=== PATIENT | female | born 1960 | race African-American/Black ===

== ENCOUNTER 2016-05-30 21:11 | Emergency (ER) | payer OTHER ==
[~2016-05-30] VITALS: Ht 162.6 cm; Wt 79.4 kg
[2016-05-30] MEDS ORDERED: Methocarbamol 750mg tab ORAL ONE (21:45)
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
[2016-05-30] MEDS ORDERED: ROBAXIN-750750 MG PO (21:47)
[2016-05-30 21:58] VITALS: BP 112/80
[2016-05-30 21:59] VITALS: BP 106/73
== END 2016-05-30 22:01 | disposition home or self-care (01) ==
LOC: EDBD 21:11 → EMR 21:53 → EDBD 21:53 → EMR 22:01
DX: M79.1 Myalgia (principal)
CPT/HCPCS: 99283

== ENCOUNTER 2016-09-14 09:44 | Emergency (ER) | payer OTHER ==
[~2016-09-14] VITALS: Ht 170.2 cm; Wt 90.7 kg
[~2016-09-14 09:44] MED LIST: ROBAXIN-750750 MG PO
[2016-09-14 09:52] VITALS: BP 131/89
[2016-09-14] MEDS ORDERED: ROBAXIN500 MG PO (10:25)
[2016-09-14 10:37] VITALS: BP 131/89
--- NOTE | 2016-09-14 13:10 | Emergency Room Report ---
History of Present Illness General Chief Complaint: Pain Source: Patient Present Illness HPI 56-year-old female presents to ED for evaluation. States the last month she's been having cramping sensation in her legs bilaterally, left worse and right. 5 /10 in intensity. Nonradiating. No aggravating or relieving factors. Patient states she is taking Robaxin in the past for cramping. Is here for refill of her medication. Denies injuries to the leg. Denies any other associated symptoms Allergies: Coded Allergies: No Known Allergies (Unverified , 05/30/16) Patient History Past Medical History: asthma Past Surgical History: none Pertinent Family History: none Social History: Denies: alcohol use, drug use, smoking Last Menstrual Period: partial hystrectomy Now: No Immunizations: UTD Reviewed Nursing Documentation: PMH: Agreed, PSxH: Agreed Nursing Documentation-PMH Past Medical History: No History, Except For Hx Asthma: Yes Review of Systems All Other Systems: negative except mentioned in HPI Physical Exam Vital Signs Date Time Temp Pulse Resp B/P Pulse Ox O2 Delivery O2 Flow Rate FiO2 09/14/16 09:52 97.7 16 131/89 99 Room Air 09/14/16 09:52 73 Sp02 EP Interpretation: reviewed, normal General Appearance: no apparent distress, alert, GCS 15, non-toxic Head: normocephalic, atraumatic Eyes: bilateral eye PERRL, bilateral eye normal inspection ENT: hearing grossly normal, normal pharynx, no angioedema, normal voice Neck: full range of motion, supple/symm/no masses Respiratory: chest non-tender, lungs clear, normal breath sounds, speaking full sentences Cardiovascular #1: regular rate, rhythm, no edema Cardiovascular #2: 2+ carotid (R), 2+ carotid (L), 2+ radial (R), 2+ radial (L) , 2+ dorsalis pedis (R), 2+ dorsalis pedis (L) Gastrointestinal: normal bowel sounds, non tender, soft, non-distended, no guarding, no rebound Rectal: deferred Genitourinary: normal inspection, no CVA tenderness Musculoskeletal: back normal, gait/station normal, normal range of motion, non- tender Neurologic: alert, oriented x3, responsive, motor strength/tone normal, sensory intact, speech normal Psychiatric: judgement/insight normal, memory normal, mood/affect normal, no suicidal/homicidal ideation Reflexes: 3+ bicep (R), 3+ bicep (L), 3+ tricep (R), 3+ tricep (L), 3+ knee (R) , 3+ knee (L) Skin: normal color, no rash, warm/dry, well hydrated Lymphatic: no adenopathy Medical Decision Making Diagnostic Impression: Primary Impression: Muscle cramps ER Course 56-year-old female presents to ED refill of her medication. takes robaxin for leg cramps hospital course: After initial history physical exam reveals a middle-aged female in no acute distress there is some palpable muscle tenderness in both legs. No bony tenderness. No swelling. Patient states pain is typical of her muscle cramps. I will provide her with prescription of Robaxin Diagnosis- muscle cramps Stable and discharged to home with prescription for Robaxin. Followup with PMD. Return to ED if symptoms recur or worsen Last Vital Signs Date Time Temp Pulse Resp B/P Pulse Ox O2 Delivery O2 Flow Rate FiO2 09/14/16 10:37 97.7 16 131/89 99 Room Air 09/14/16 09:52 73 Status: improved Disposition: HOME, SELF-CARE Condition: Stable Scripts Methocarbamol* (ROBAXIN*) 500 Mg Tablet 500 MG PO TID, #21 TAB 0 Refills Prov: SHAHRZAD MCCLELLAND M.D. 09/14/16 Referrals: [facility] (PCP) Patient Instructions: Muscle Cramps and Spasms, [id number] SHAHRZAD MCCLELLAND M.D. September 14, 2016 13:10
== END 2016-09-14 10:38 | disposition home or self-care (01) ==
LOC: EMR 10:32
DX: R25.2 Cramp and spasm (principal); J45.909 Unspecified asthma, uncomplicated; Z90.710 Acquired absence of both cervix and uterus
CPT/HCPCS: 99283

== ENCOUNTER 2016-10-19 12:20 | Emergency (ER) | payer OTHER ==
[~2016-10-19] VITALS: Ht 170.2 cm; Wt 90.7 kg
[~2016-10-19 12:20] MED LIST changes: +ROBAXIN500 MG PO
[2016-10-19] MEDS ORDERED: Ketorolac 60mg Inj IM ONE (12:45)
--- NOTE | 2016-10-19 12:55 | Emergency Room Report ---
History of Present Illness General Chief Complaint: Pain Source: Patient Present Illness HPI 56YOF [employer] patient with pain to right knee after "lots of walking" yesterday when she went to [place]. Denies direct trauma to right knee, leg, falls. Taking Robaxin for pain. Denies swelling, fever/chills, redness. Patient homeless. Has been here before similar. Allergies: Coded Allergies: No Known Allergies (Unverified , 05/30/16) Patient History Past Medical History: none Past Surgical History: none Pertinent Family History: none Social History: Denies: alcohol use, drug use, smoking Now: No Immunizations: UTD Reviewed Nursing Documentation: PMH: Agreed, PSxH: Agreed Nursing Documentation-PMH Hx Asthma: Yes Review of Systems All Other Systems: negative except mentioned in HPI Physical Exam Vital Signs Date Time Temp Pulse Resp B/P Pulse Ox O2 Delivery O2 Flow Rate FiO2 10/19/16 12:24 97.3 78 15 144/95 98 Room Air Sp02 EP Interpretation: reviewed, normal General Appearance: normal inspection, well appearing, no apparent distress, alert, GCS 15, non-toxic Head: normocephalic, atraumatic Eyes: bilateral eye EOMI, bilateral eye PERRL ENT: normal ENT inspection, hearing grossly normal, normal voice Neck: normal inspection, full range of motion, supple, no bony tend Respiratory: normal inspection, lungs clear, normal breath sounds, no respiratory distress, no retraction, no wheezing Cardiovascular #1: regular rate, rhythm, no edema Gastrointestinal: normal inspection, normal bowel sounds, non tender, soft, no guarding, no hernia Genitourinary: no CVA tenderness Musculoskeletal: normal inspection, back normal, normal range of motion, Arlin' s Sign negative, other - right knee: No trauma. No obvious deformity. Mild suprapatellar swelling. Mild ttp. Able to flex, extend without pain. Neurologic: normal inspection, alert, oriented x3, responsive, supervisor sterile processing III-XII nml as tested, motor strength/tone normal, speech normal Psychiatric: normal inspection, judgement/insight normal, mood/affect normal Skin: normal inspection, normal color, no rash Medical Decision Making Diagnostic Impression: Primary Impression: Right knee pain Qualified Codes: M25.561 - Pain in right knee ER Course Toradol given Xray: no acute trauma Some swelling VANESSA bandage given Has Robaxin for pain Advised ICE, RICE PMD followup as needed Other X-Ray Diagnostic Results # of Views/Limited Vs Complete: 3 View EP Interpretation: Yes Interpretation: no fractures, no dislocation, no soft tissue swelling Indication: Pain Impression: No acute disease Interpreting ER Provider: Caitlin Last Vital Signs Date Time Temp Pulse Resp B/P Pulse Ox O2 Delivery O2 Flow Rate FiO2 10/19/16 12:24 97.3 78 15 144/95 98 Room Air Status: improved Disposition: HOME, SELF-CARE MARY ALICE SAMUELS M.D. Oct 19, 2016 12:55
[2016-10-19 13:18] VITALS: BP 144/95
[2016-10-19 14:01] VITALS: BP 144/95
--- NOTE | 2016-10-20 11:21 | Diagnostic Imaging Report ---
Indications: Right knee pain Technique: 3 views of the right knee Findings: Comparison: None No fracture, dislocation, lytic destruction, periosteal reaction, joint space widening or effusion, surrounding soft tissue abnormality, or other acute changes demonstrated. No deformity, alignment abnormality, arthritic change, soft tissue calcification, or other chronic changes demonstrated. IMPRESSION: Negative right knee series.
== END 2016-10-19 14:03 | disposition home or self-care (01) ==
LOC: EMR 12:51
DX: M25.561 Pain in right knee (principal); Z59.0 Homelessness
CPT/HCPCS: 29530; 96372; 99283

== ENCOUNTER 2016-10-23 09:05 | Emergency (ER) | payer OTHER ==
[~2016-10-23] VITALS: Ht 170.2 cm; Wt 90.7 kg
[2016-10-23 09:22] VITALS: BP 108/73
[2016-10-23] MEDS ORDERED: ROBAXIN-750750 MG PO (09:38)
[2016-10-23 10:02] VITALS: BP 124/71
--- NOTE | 2016-10-23 10:33 | Emergency Room Report ---
History of Present Illness General Chief Complaint: Pain Source: Patient Present Illness HPI 56YOF [employer] patient walked in with request for cane. Lost her cane. Also wants refill of Robaxin Denies pain, acute trauma Was here to see me 1 week prior. Went to another ER since AND also was seen here by another ER MD Allergies: Coded Allergies: No Known Allergies (Unverified , 05/30/16) Patient History Past Medical History: see triage record, old chart reviewed Past Surgical History: none Pertinent Family History: none Social History: Denies: alcohol use, drug use, smoking Now: No Immunizations: UTD Reviewed Nursing Documentation: PMH: Agreed, PSxH: Agreed Nursing Documentation-PMH Past Medical History: No History, Except For Hx Asthma: Yes Review of Systems All Other Systems: negative except mentioned in HPI Physical Exam Vital Signs Date Time Temp Pulse Resp B/P Pulse Ox O2 Delivery O2 Flow Rate FiO2 10/23/16 09:22 97.3 15 108/73 98 Room Air 10/23/16 09:22 78 Sp02 EP Interpretation: reviewed, normal General Appearance: normal inspection, well appearing, no apparent distress, alert, GCS 15, non-toxic, obese Head: normocephalic, atraumatic Eyes: bilateral eye EOMI, bilateral eye PERRL ENT: normal ENT inspection, hearing grossly normal, normal voice Neck: normal inspection, full range of motion, supple, no bony tend Respiratory: normal inspection, lungs clear, normal breath sounds, no respiratory distress, no retraction, no wheezing Cardiovascular #1: regular rate, rhythm, no edema Gastrointestinal: normal inspection, normal bowel sounds, non tender, soft, no guarding, no hernia Genitourinary: no CVA tenderness Musculoskeletal: normal inspection, back normal, normal range of motion, pelvis stable, Arlin's Sign negative, other - No obvious signs of infection, cellulitis to bilateral knees Neurologic: normal inspection, alert, oriented x3, responsive, chief embalmer III-XII nml as tested, motor strength/tone normal, speech normal Psychiatric: normal inspection, judgement/insight normal, mood/affect normal Skin: normal inspection, normal color, no rash Medical Decision Making Diagnostic Impression: Primary Impression: Use of cane as ambulatory aid Additional Impressions: Encounter for cane training Medication refill ER Course Cane given Rx Robaxin refilled DC home Last Vital Signs Date Time Temp Pulse Resp B/P Pulse Ox O2 Delivery O2 Flow Rate FiO2 10/23/16 10:02 63 18 124/71 100 Room Air 10/23/16 09:22 97.3 Status: improved Disposition: HOME, SELF-CARE Condition: Improved Scripts Methocarbamol* (ROBAXIN-750*) 750 Mg Tablet 750 MG PO TID for 7 Days, #30 TAB 0 Refills Prov: MARY ALICE SAMUELS M.D. 10/23/16 Referrals: [facility] (PCP) Patient Instructions: Musculoskeletal Pain MARY ALICE SAMUELS M.D. Oct 23, 2016 10:32
== END 2016-10-23 10:07 | disposition home or self-care (01) ==
LOC: EMR 09:25
DX: Z76.0 Encounter for issue of repeat prescription (principal); Z74.09 Other reduced mobility
CPT/HCPCS: 99283

== ENCOUNTER 2017-01-21 09:41 | Emergency (ER) | payer OTHER ==
[~2017-01-21] VITALS: Ht 165.1 cm; Wt 90.7 kg
--- NOTE | 2017-01-21 10:05 | Emergency Room Report ---
History of Present Illness General Chief Complaint: Pain Source: Patient Present Illness HPI Patient has a plantar wart on her left foot. She's run out of medication. She has pain when she ambulates. She has been taking ibuprofen that's been helping with the pain. She denies any fevers, chills or redness in the area. She's been using Compound W. She's asking for a cane because she has pain when she ambulates. Also requests more compound W. The patient states her tetanus is up-to-date. H/O asthma, resps stable. Allergies: Coded Allergies: No Known Allergies (Unverified , 05/30/16) Patient History Past Medical History: see triage record Social History: Denies: smoking Social History Narrative lives in apartment Reviewed Nursing Documentation: PMH: Agreed, PSxH: Agreed Nursing Documentation-PMH Hx Asthma: Yes Review of Systems Constitutional: Denies: fever Respiratory: Denies: shortness of breath Cardiovascular: Denies: chest pain Gastrointestinal: Denies: vomiting Musculoskeletal: Reports: see HPI Skin: Reports: see HPI Neurological: Denies: numbness, tingling Physical Exam Vital Signs Date Time Temp Pulse Resp B/P (MAP) Pulse Ox O2 Delivery O2 Flow Rate FiO2 01/21/17 09:44 97.5 66 20 129/85 99 Skin: other - plantar wart L foot Medical Decision Making Diagnostic Impression: Primary Impression: Plantar wart of left foot ER Course Patient presents with a plantar wart on her left foot. Differential diagnoses clinical and the patient is afebrile. No evidence of cellulitis. Local tenderness with weight bearing. The patient also requesting a cane. Rxs. The patient is stable for outpatient observation and treatment. Last Vital Signs Date Time Temp Pulse Resp B/P (MAP) Pulse Ox O2 Delivery O2 Flow Rate FiO2 01/21/17 10:14 97.5 66 20 129/85 99 Status: unchanged Disposition: HOME, SELF-CARE Condition: Stable Scripts Cane (CANE) 1 Each Each EACH for plantar wart, #1 Prov: Ronni Covington M.D. 01/21/17 Salicylic Acid (COMPOUND W) 9 Ml Liquid 1 APPLIC TP DAILY, #20 ML Prov: Ronni Covington M.D. 01/21/17 Ibuprofen* (MOTRIN*) 600 Mg Tablet 600 MG ORAL Q6H Y for For Pain, #20 TAB Prov: Ronni Covington M.D. 01/21/17 Ronni Covington M.D. Jan 21, 2017 10:05
[2017-01-21] MEDS ORDERED: COMPOUND W9 ML TP (10:07)
[2017-01-21] MEDS ORDERED: CANE1 EACH MC (10:07)
[2017-01-21] MEDS ORDERED: IBUPROFEN600 MG ORAL (10:07)
[2017-01-21 10:12] VITALS: BP 129/85
[2017-01-21 10:14] VITALS: BP 129/85
== END 2017-01-21 10:37 | disposition home or self-care (01) ==
LOC: EMR 10:03
DX: B07.0 Plantar wart (principal)
CPT/HCPCS: 99284

== ENCOUNTER 2017-02-06 09:29 | Emergency (ER) | payer OTHER ==
[~2017-02-06] VITALS: Ht 157.5 cm; Wt 68.0 kg
[~2017-02-06 09:29] MED LIST changes: +CANE1 EACH MC; +COMPOUND W9 ML TP; +IBUPROFEN600 MG ORAL
[2017-02-06 09:57] VITALS: BP 143/79
[2017-02-06 10:09] VITALS: BP 145/80
[2017-02-06 10:10] VITALS: BP 143/79
--- NOTE | 2017-02-06 12:26 | Emergency Room Report ---
History of Present Illness General Chief Complaint: Pain Source: Patient Present Illness HPI 56-year-old female no significant past medical history presenting with discoloration to left thumb nail for many weeks. Patient states that she even cut the nail short but it still keeps going back with discoloration. Denies any trauma or purulent drainage Allergies: Coded Allergies: No Known Allergies (Unverified , 05/30/16) Patient History Past Medical History: see triage record Nursing Documentation-[facility] Past Medical History: No History, Except For Hx Asthma: Yes History Of Psychiatric Problem: Yes - Bipolar Review of Systems All Other Systems: negative except mentioned in HPI Physical Exam Vital Signs Date Time Temp Pulse Resp B/P (MAP) Pulse Ox O2 Delivery O2 Flow Rate FiO2 02/06/17 09:33 97.3 74 16 143/79 98 Room Air Sp02 EP Interpretation: reviewed, normal General Appearance: normal inspection, well appearing, no apparent distress, alert, GCS 15, non-toxic Head: normocephalic, atraumatic Eyes: bilateral eye normal inspection, bilateral eye PERRL, bilateral eye EOMI ENT: normal ENT inspection, normal pharynx, normal voice, moist mucus membranes Neck: normal inspection, full range of motion, supple Respiratory: normal inspection, lungs clear, normal breath sounds, no respiratory distress, no retraction, no wheezing, speaking full sentences, chest symmetrical Cardiovascular #1: normal inspection, regular rate, rhythm, no edema, normal capillary refill Cardiovascular #2: 2+ radial (R), 2+ radial (L) Gastrointestinal: normal inspection, non tender, soft, non-distended, no guarding Musculoskeletal: normal inspection, back normal, normal range of motion, non- tender, other - Multiple fingernails of chronic discoloration, no signs of cellulitis no signs of paronychia Neurologic: normal inspection, alert, oriented x3, responsive, motor strength/ tone normal, sensory intact, normal gait, speech normal Psychiatric: normal inspection, judgement/insight normal, memory normal Skin: normal inspection, normal color, no rash, warm/dry, well hydrated, normal turgor Medical Decision Making Diagnostic Impression: Primary Impression: Nail abnormalities ER Course 56-year-old female with left thumbnail discoloration for many weeks DDX: Psoriasis, chronic nail discoloration Plan: None ER course: Patient has remained stable during ED stay. Disposition: Patient is to be discharged to home. Patient has an appointment with her primary care doctor today Please note that this Emergency Department Report was dictated using [employer] developer technology software, occasionally this can lead to erroneous entry secondary to interpretation by the dictation equipment Last Vital Signs Date Time Temp Pulse Resp B/P (MAP) Pulse Ox O2 Delivery O2 Flow Rate FiO2 02/06/17 10:10 97.3 86 16 143/79 98 Room Air Disposition: HOME, SELF-CARE Condition: Stable Additional Instructions: Please followup with your primary care doctor today Mayi Charlton M.D. Feb 06, 2017 12:26
== END 2017-02-06 10:11 | disposition home or self-care (01) ==
LOC: EMR 09:49
DX: L60.8 Other nail disorders (principal); J45.909 Unspecified asthma, uncomplicated; F31.9 Bipolar disorder, unspecified
CPT/HCPCS: 99282

== ENCOUNTER 2017-02-15 11:57 | Emergency (ER) | payer OTHER ==
[~2017-02-15] VITALS: Ht 167.6 cm; Wt 90.7 kg
[2017-02-15] MEDS ORDERED: IBUPROFEN600 MG ORAL (12:20)
[2017-02-15] MEDS ORDERED: [UNRECOGNIZED DRUG - OTHER] TP (12:20)
[2017-02-15 12:25] VITALS: BP 133/89
--- NOTE | 2017-02-15 14:35 | Emergency Room Report ---
History of Present Illness General Chief Complaint: Pain Source: Patient Present Illness HPI The patient is a 56-year-old female presenting for continued left foot pain. She was in this emergency department for the same complaint and diagnosed with a plantar wart for which she was prescribed salicylic acid. She states that she spilled this medication so she has not been using it. Pain has continued and is a 10 out of 10 sharp sensation to the mid plantar surface of the foot. Worse with walking. She denies radiating pain. She denies any other symptoms Allergies: Coded Allergies: No Known Allergies (Unverified , 05/30/16) Patient History Past Medical History: see triage record Pertinent Family History: none Reviewed Nursing Documentation: PMH: Agreed, PSxH: Agreed Nursing Documentation-PMH Hx Asthma: Yes Review of Systems All Other Systems: negative except mentioned in HPI Physical Exam Vital Signs Date Time Temp Pulse Resp B/P (MAP) Pulse Ox O2 Delivery O2 Flow Rate FiO2 02/15/17 12:00 97.5 77 20 133/89 99 Room Air Sp02 EP Interpretation: reviewed, normal General Appearance: no apparent distress, alert, GCS 15, non-toxic Head: normocephalic, atraumatic Eyes: bilateral eye normal inspection, bilateral eye PERRL Musculoskeletal: back normal, gait/station normal, normal range of motion, no calf tenderness, tender - mid plantar surface of L foot Neurologic: alert, oriented x3, responsive, motor strength/tone normal, sensory intact, speech normal Psychiatric: judgement/insight normal, memory normal, mood/affect normal, no suicidal/homicidal ideation Skin: other - L foot plantar surface circular lesion. Tender. Thickened skin. No erythema. Lymphatic: no adenopathy Medical Decision Making PA Attestation Dr. Miranda is my supervising physician. Patient management was discussed with my supervising physician Diagnostic Impression: Primary Impression: Plantar callus ER Course The patient is a 56-year-old female presenting for continued left foot pain. Differential diagnosis considered not limited to: callus, wart, foreign body, cellulitis PE: NAD L foot plantar surface circular lesion. Tender. Thickened skin. No erythema. The patient is given salicylic acid patches as a prescription and will followup with her primary doctor. ER precautions given Last Vital Signs Date Time Temp Pulse Resp B/P (MAP) Pulse Ox O2 Delivery O2 Flow Rate FiO2 02/15/17 12:25 97.5 20 133/89 99 Room Air 02/15/17 12:25 84 Status: improved Disposition: HOME, SELF-CARE Condition: Improved Scripts Salicylic Acid (CALLUS REMOVER) 1 Each Adh..patch 1 EACH TP DAILY, #30 PATCH Prov: TREVOR CASPER 02/15/17 Ibuprofen* (MOTRIN*) 600 Mg Tablet 600 MG ORAL Q8H Y for For Pain, #30 TAB 0 Refills Prov: TREVOR CASPER 02/15/17 Referrals: [facility] ([facility]P) Patient Instructions: Plantar Warts Additional Instructions: I discussed my findings with the patient. All questions and concerns have been answered. Treatment and medication compliance have been addressed. I advised the patient that they need to follow up with PMD in 3-5 days. Return to ED if pain remains or worsens, numbness or tingling occurs, new rash is noticed, fever is noticed, or if needed for any reason. Patient verbalized understanding of discharge instructions. TREVOR CASPER Feb 15, 2017 14:35
== END 2017-02-15 12:25 | disposition home or self-care (01) ==
LOC: EMR 12:20
DX: L84 Corns and callosities (principal); J45.909 Unspecified asthma, uncomplicated
CPT/HCPCS: 99284

== ENCOUNTER 2017-05-31 12:04 | Emergency (ER) | payer OTHER ==
[~2017-05-31] VITALS: Ht 160 cm; Wt 90.7 kg
[~2017-05-31 12:04] MED LIST changes: +[UNRECOGNIZED DRUG - OTHER] TP
[2017-05-31] MEDS ORDERED: FLONASE ALLERG9.9 ML NS (12:26)
[2017-05-31] MEDS ORDERED: HYDROcodone/Acetamin 7.5/325 tab ORAL ONE (12:30)
--- NOTE | 2017-05-31 12:39 | Emergency Room Report ---
History of Present Illness General Chief Complaint: Pain Source: Patient Present Illness HPI 57-year-old female presents to the emergency department complaining of 10 out of 10 in severity pain, swelling, tenderness and mild deformity to the distal left thumb x2 days status post mechanical fall. Patient states that she tried to brace herself with her hand and when she got a finger is obviously deformed. Denies previous injury to the extremity she reports she is able to bend it slightly. Denies hitting her head. Pt. is right hand dominant. Denies numbness tingling or loss of sensation or gross motor movements of the extremities, incontinence of bowel or bladder. Denies CP, Palpitations, LOC, AMS, dizziness, Changes in Vision, Sensation, paresthesias, or a sudden severe headache. Pt. also c/o callus to the left foot and states she is out of her callous cream, unknown name. Allergies: Coded Allergies: No Known Allergies (Unverified , 05/30/16) Patient History Past Medical History: see triage record Past Surgical History: none Pertinent Family History: none Last Menstrual Period: 2004 Hysterectomy Now: No Reviewed Nursing Documentation: PMH: Agreed, PSxH: Agreed Nursing Documentation-PMH Hx Asthma: Yes Review of Systems All Other Systems: negative except mentioned in HPI Physical Exam Vital Signs Date Time Temp Pulse Resp B/P (MAP) Pulse Ox O2 Delivery O2 Flow Rate FiO2 05/31/17 12:23 97.5 76 17 129/92 97 Room Air Sp02 EP Interpretation: reviewed, normal General Appearance: no apparent distress, alert, GCS 15, non-toxic Head: normocephalic, atraumatic ENT: hearing grossly normal, normal voice Neck: full range of motion Respiratory: lungs clear, normal breath sounds, speaking full sentences Cardiovascular #1: regular rate, rhythm, normal capillary refill Rectal: deferred Musculoskeletal: back normal, gait/station normal, normal range of motion, tender - TTP, Swelling, and mild deformity to the DIP of the Left thumb. Some increased laxity. Neurologic: alert, oriented x3, responsive, motor strength/tone normal, sensory intact, speech normal, grossly normal Psychiatric: judgement/insight normal Skin: normal color, no rash, warm/dry, well hydrated Lymphatic: no adenopathy Medical Decision Making PA Attestation Dr. Miranda is my supervising Physician whom patient management has been discussed with. Diagnostic Impression: Primary Impression: Plantar callus Additional Impressions: Fracture of thumb, closed Qualified Codes: S62.525A - Nondisplaced fracture of distal phalanx of left thumb, initial encounter for closed fracture Sprain of hand, thumb, left Qualified Codes: S63.622A - Sprain of interphalangeal joint of left thumb, initial encounter ER Course 57-year-old female presents to the emergency department complaining of 10 out of 10 in severity pain, swelling, tenderness and mild deformity to the distal left thumb x2 days status post mechanical fall. Patient states that she tried to brace herself with her hand and when she got a finger is obviously deformed. Denies previous injury to the extremity she reports she is able to bend it slightly. Denies hitting her head. Pt. is right hand dominant. Denies numbness tingling or loss of sensation or gross motor movements of the extremities, incontinence of bowel or bladder. Denies CP, Palpitations, LOC, AMS, dizziness, Changes in Vision, Sensation, paresthesias, or a sudden severe headache. Pt. also c/o callus to the left foot and states she is out of her callous cream, unknown name. Ddx considered but are not limited to Fracture, dislocation, contusion, Sprain/ Strain/Spasm. Vital signs: are WNL, pt. is afebrile H&PE are most consistent with musculoskeletal injury will perform imaging to r/ o fractures/dislocations. ORDERS: - X-ray Left Hand 3 views - questionable fracture at the DIP, pt. treated prophylactically awaiting official radiology read. ED INTERVENTIONS: - Bison PO - Finger Splint applied to the left thumb by electronics warfare technician. Pt. remains neurovascularly intact. DISCHARGE: At this time pt. is stable for d/c to home. Will provide printed patient care instructions, and any necessary prescriptions. Care plan and follow up instructions have been discussed with the patient prior to discharge. Other X-Ray Diagnostic Results Other X-Ray Diagnostic Results : X-Ray ordered: Left Hand # of Views/Limited Vs Complete: 3 View Indication: Pain EP Interpretation: Yes PA Xray: Interpretation reviewed, by supervising MD, and agrees with findings. Interpretation: no dislocation, no soft tissue swelling, other - questionable fracture at the DIP, pt. treated prophylactically awaiting official radiology read. Impression: Other - questionable fracture at the DIP, pt. treated prophylactically awaiting official radiology read. Electronically Signed by: Elli Small PA-C Last Vital Signs Date Time Temp Pulse Resp B/P (MAP) Pulse Ox O2 Delivery O2 Flow Rate FiO2 05/31/17 12:23 97.5 76 17 129/92 97 Room Air Disposition: HOME, SELF-CARE Condition: Stable Scripts Salicylic Acid (COMPOUND W) 9 Ml Liquid 1 APPLIC TP DAILY, #9 ML Prov: Elli Small 05/31/17 Hydrocodone Bit/Acetaminophen 5-325* (NORCO 5-325*) 1 Each Tablet 1 TAB ORAL Q6H Y for For Pain, #5 TAB 0 Refills Prov: Elli Small 05/31/17 Ibuprofen* (MOTRIN*) 600 Mg Tablet 600 MG ORAL THREE TIMES A DAY, #30 TAB 0 Refills Prov: Elli Small 05/31/17 Patient Instructions: Finger Sprain, Finger or Thumb Dislocation, [id number] , Thumb Fracture Additional Instructions: Take medications as directed. Follow up with an Coding Manager in 3-5 days, even if your symptoms have resolved. --Please review list of primary care clinics, if you do not already have a primary care provider Return sooner to ED if new symptoms occur, or current symptoms become worse. - Please note that this Emergency Department Report was dictated using [employer] Essential[employer]visor hand silvering technology software, occasionally this can lead to erroneous entry secondary to interpretation by the dictation equipment. Elli Small May 31, 2017 12:39
[2017-05-31] MEDS ORDERED: IBUPROFEN600 MG ORAL (13:15)
[2017-05-31] MEDS ORDERED: NORCO 5-325 TA1 EACH ORAL (13:15)
[2017-05-31] MEDS ORDERED: COMPOUND W9 ML TP (13:30)
[2017-05-31 13:35] VITALS: BP 128/76
--- NOTE | 2017-06-01 08:53 | Diagnostic Imaging Report ---
Indication: Reason For Exam: PAIN Technique: 3 views left hand Comparison: none Findings: There is an old ununited ulnar styloid fracture or ununited ulnar styloid apophysis. No acute fractures. No dislocations. Impression: No acute process
== END 2017-05-31 13:25 | disposition home or self-care (01) ==
LOC: EMR 12:35
DX: L84 Corns and callosities (principal); S52.612K Displaced fracture of left ulna styloid process, subsequent encounter for closed fracture with nonunion; X58.XXXD Exposure to other specified factors, subsequent encounter; J45.909 Unspecified asthma, uncomplicated
CPT/HCPCS: 99284

== ENCOUNTER 2017-07-11 11:40 | Emergency (ER) | payer OTHER ==
[~2017-07-11] VITALS: Ht 170.2 cm; Wt 90.7 kg
[~2017-07-11 11:40] MED LIST changes: +FLONASE ALLERG9.9 ML NS; +NORCO 5-325 TA1 EACH ORAL
[2017-07-11 12:00] VITALS: BP 123/74
[2017-07-11] MEDS ORDERED: Norco 5mg/325mg tab ORAL ONE (12:45)
--- NOTE | 2017-07-11 12:45 | Emergency Room Report ---
History of Present Illness General Chief Complaint: Medication Refill Present Illness HPI 57 YO Female presents to the ED c/o painful plantar wart to the bottom of the left foot. 10/10 localized pain, unable to fill rx for Compound W. needs referrals for primary care and dentist. Denies erythema, open wounds, bleeding, crusting, blisters. Denies trauma or fall. Denies CP, Palpitations, LOC, AMS, dizziness, Changes in Vision, Sensation, paresthesias, or a sudden severe headache. Allergies: Coded Allergies: No Known Allergies (Unverified , 05/30/16) Patient History Past Medical History: see triage record Past Surgical History: none Pertinent Family History: none Immunizations: UTD Reviewed Nursing Documentation: PMH: Agreed, PSxH: Agreed Nursing Documentation-PMH Hx Asthma: Yes Review of Systems All Other Systems: negative except mentioned in HPI Physical Exam Vital Signs Date Time Temp Pulse Resp B/P (MAP) Pulse Ox O2 Delivery O2 Flow Rate FiO2 07/11/17 11:49 97.8 73 18 123/74 96 Room Air 97.9 Sp02 EP Interpretation: reviewed, normal General Appearance: no apparent distress, alert, GCS 15, non-toxic Head: normocephalic, atraumatic ENT: hearing grossly normal, normal voice Neck: full range of motion Respiratory: chest non-tender, lungs clear, normal breath sounds, no respiratory distress, no wheezing, speaking full sentences Cardiovascular #1: regular rate, rhythm, no edema Musculoskeletal: back normal, gait/station normal, normal range of motion, non- tender Neurologic: alert, oriented x3, responsive, motor strength/tone normal, sensory intact, normal gait, speech normal, grossly normal Psychiatric: judgement/insight normal Skin: normal color, warm/dry, well hydrated, other - 8mm plantar wart on left foot, no erythema, pus, blisters, ulcers or vesicles. thickened skin/callous surrounding wart. Lymphatic: no adenopathy Medical Decision Making PA Attestation Dr. Tucker is my supervising Physician whom patient management has been discussed with. Diagnostic Impression: Primary Impression: Plantar callus Additional Impression: Plantar wart of left foot ER Course 57 YO Female presents to the ED c/o painful plantar wart to the bottom of the left foot. 10/10 localized pain, unable to fill rx for Compound W. needs referrals for primary care and dentist. Denies erythema, open wounds, bleeding, crusting, blisters. Denies trauma or fall. Denies CP, Palpitations, LOC, AMS, dizziness, Changes in Vision, Sensation, paresthesias, or a sudden severe headache. Ddx considered but are not limited to cellulitis, Plantar wart, Tophi, retained FB, dermatitis, , eczema, tinea, viral exanthem just to name a few. Vital signs: are WNL, pt. is afebrile H&PE are most consistent with Plantar wart with callous ORDERS: none required at this time, the diagnosis is clinical ED INTERVENTIONS: None required at this time. DISCHARGE: At this time pt. is stable for d/c to home. Will provide printed patient care instructions, and any necessary prescriptions. Care plan and follow up instructions have been discussed with the patient prior to discharge. Last Vital Signs Date Time Temp Pulse Resp B/P (MAP) Pulse Ox O2 Delivery O2 Flow Rate FiO2 07/11/17 12:38 97.8 07/11/17 11:49 73 18 123/74 96 Room Air Disposition: HOME, SELF-CARE Condition: Stable Scripts Acetaminophen (Tylenol) 325 Mg Tablet 650 MG ORAL Q6H Y for Prn Pain/Headache/Temp > 101, #20 TAB 0 Refills Prov: Elli Small 07/11/17 Salicylic Acid (DUOFILM) 9.8 Ml Liquid 1 APPLIC TP BID for 60 Days, #9.8 ML Prov: Elli Small 07/11/17 Referrals: [facility],REFERRING (PCP) Patient Instructions: Plantar Warts Additional Instructions: Take medications as directed. Follow up with a Primary Care Provider in 3-5 days, even if your symptoms have resolved. --Please review list of primary care clinics, if you do not already have a primary care provider Return sooner to ED if new symptoms occur, or current symptoms become worse. - Please note that this Emergency Department Report was dictated using [employer] supervisor technology software, occasionally this can lead to erroneous entry secondary to interpretation by the dictation equipment. Elli Small Jul 11, 2017 12:45
[2017-07-11] MEDS ORDERED: DUOFILM9.8 ML TP (12:49)
[2017-07-11] MEDS ORDERED: TYLENOL325 MG ORAL (12:49)
[2017-07-11 13:07] VITALS: BP 123/74
== END 2017-07-11 14:02 | disposition home or self-care (01) ==
LOC: EMR 12:38
DX: L84 Corns and callosities (principal); B07.9 Viral wart, unspecified; J45.909 Unspecified asthma, uncomplicated
CPT/HCPCS: 99284

== ENCOUNTER 2018-12-12 09:19 | Emergency (ER) | payer OTHER ==
[~2018-12-12] VITALS: Ht 167.6 cm; Wt 63.5 kg
[~2018-12-12 09:19] MED LIST changes: +DUOFILM9.8 ML TP; +TYLENOL325 MG ORAL
--- NOTE | 2018-12-12 09:36 | NUR ---
ED Nurse Note: pt walked in due left foot pain denies trauma. pt stated it been there for a week now. pt able to ambulate.
[2018-12-12 09:37] VITALS: BP 146/91
[2018-12-12] MEDS ORDERED: HYDROcodone/Acetamin 5/325 tab ORAL ONE (10:15)
--- NOTE | 2018-12-12 10:21 | NUR ---
ED Nurse Note: pt medicated as ordered and pt able to tolerate po meds. will continue to monitor.
[2018-12-12] MEDS ORDERED: IBUPROFEN600 MG ORAL (10:28)
[2018-12-12] MEDS ORDERED: TYLENOL325 MG ORAL (10:28)
[2018-12-12 10:44] VITALS: BP 145/90
--- NOTE | 2018-12-12 10:44 | NUR ---
ER DISCHARGE NOTE: Patient is cleared to be discharged per ERMD, pt is aox4, on room air, with stable vital signs. pt was given dc and prescription instructions, pt was able to verbalize understanding, pt id band removed without complications. pt is able to ambulate with steady gait. pt took all belongings.
--- NOTE | 2018-12-12 12:39 | Emergency Room Report ---
History of Present Illness General Chief Complaint: Pain Source: Patient, Medical Record Present Illness HPI Patient reports pain to base of both of her feet Gives fairly chronic description of discomfort with primary care physician intervention over the past 1 to 2 years Patient also felt a callus at the base of the left foot she feels that with increased walking and there is increased discomfort denies any fevers or chills denies any chest pain Patient reports that she does not have any pain medicine Denies any recent fall or trauma Allergies: Coded Allergies: No Known Allergies (Unverified , 05/30/16) Patient History Past Medical History: see triage record Last Menstrual Period: N/A Now: No : 3 Para: 3 Reviewed Nursing Documentation: PMH: Agreed; PSxH: Agreed Nursing Documentation-PMH Hx Asthma: Yes Review of Systems All Other Systems: negative except mentioned in HPI Physical Exam Vital Signs Date Time Temp Pulse Resp B/P (MAP) Pulse Ox O2 Delivery O2 Flow Rate FiO2 12/12/18 09:25 98.2 100 18 146/91 (109) 98 Room Air Sp02 EP Interpretation: reviewed, normal General Appearance: well appearing, no apparent distress Head: normocephalic, atraumatic Eyes: bilateral eye PERRL, bilateral eye EOMI ENT: hearing grossly normal, normal pharynx Respiratory: lungs clear Cardiovascular #1: regular rate, rhythm, no edema Gastrointestinal: non tender Musculoskeletal: other - Patient ambulatory no obvious focal deficit, patient does have some discomfort over the mid plantar region bilaterally no obvious edema or fluctuance Neurologic: alert, oriented x3, responsive Skin: no rash Lymphatic: no adenopathy Medical Decision Making Diagnostic Impression: Primary Impression: Plantar callus Additional Impression: Plantar fasciitis, bilateral ER Course Multiple differentials including but not limited to occult fracture, retained foreign body, ligamental pathology entertained patient's clinical exam and findings are consistent with likely plantar fasciitis on review of medical records patient also has multiple presentations with similar diagnoses and findings She is encouraged to follow closely with primary physician Last Vital Signs Date Time Temp Pulse Resp B/P (MAP) Pulse Ox O2 Delivery O2 Flow Rate FiO2 12/12/18 10:44 98.2 90 18 145/90 98 Room Air Status: improved Disposition: HOME, SELF-CARE Condition: Stable Scripts Ibuprofen* (MOTRIN*) 600 Mg Tablet 600 MG ORAL Q8H PRN for For Pain, #15 TAB 0 Refills Prov: Jamehdor,Ali DO 12/12/18 Acetaminophen (Tylenol) 325 Mg Tablet 650 MG ORAL Q12HR PRN for Prn Pain/Headache/Temp > 101, #12 TAB 0 Refills Prov: Lee Miranda DO 12/12/18 Referrals: [facility]/,REFERRING (PCP) [facility]. [facility] Patient Instructions: Flat Feet Additional Instructions: Patient is provided with the discharge instructions notified to follow up with primary doctor in the next 2-3 days otherwise return to the er with any worsening symptoms. Please note that this report is being documented using DRAG[employer] technology. This can lead to erroneous entry secondary to incorrect interpretation by the dictating instrument. Lee Miranda DO Dec 12, 2018 12:39
== END 2018-12-12 10:44 | disposition home or self-care (01) ==
LOC: EMR 10:02
DX: L84 Corns and callosities (principal); M72.2 Plantar fascial fibromatosis; J45.909 Unspecified asthma, uncomplicated
CPT/HCPCS: 99282

== ENCOUNTER 2018-12-31 05:11 | Emergency (ER) | payer OTHER ==
[~2018-12-31] VITALS: Ht 167.6 cm; Wt 68.0 kg
--- NOTE | 2018-12-31 05:27 | NUR ---
ED Nurse Note: Patient presents with complaints of left hip pain due to fall. Patient denies head trauma and reports a history of asthma.
[2018-12-31 05:29] VITALS: BP 136/97
[2018-12-31] MEDS ORDERED: IBUPROFEN600 MG ORAL (05:32)
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
--- NOTE | 2018-12-31 05:36 | NUR ---
ED Nurse Note: Patient cleared for discharge by ERMd. Patient ID band removed, Patient verbalized understanding of discharge instructions and departed with all belongings.
[2018-12-31 05:37] VITALS: BP 136/97
== END 2018-12-31 05:38 | disposition home or self-care (01) ==
LOC: EMR 05:25
DX: S70.11XA Contusion of right thigh, initial encounter (principal); J45.909 Unspecified asthma, uncomplicated; F17.200 Nicotine dependence, unspecified, uncomplicated; W13.4XXA Fall from, out of or through window, initial encounter; Y92.003 Bedroom of unspecified non-institutional (private) residence as the place of occurrence of the external cause
CPT/HCPCS: 99282